=== PATIENT | female | born 1980 | race Asian ===

== ENCOUNTER 2023-04-15 17:48 | Emergency (ER) | payer MEDICAID ==
[~2023-04-15] VITALS: Ht 162.6 cm; Wt 63.5 kg
[2023-04-15 18:08] VITALS: BP_SYST 155; PULSE 77; RESP 16; TEMP 98.4; O2SAT 100
[2023-04-15] MEDS ORDERED: ASPIRIN 81 MG TAB.CHEW PO ONE (20:00)
[2023-04-15 20:41] LABS: BASOPHILS % (AUTO) 0.2 % (0.0-2.0); EOSINOPHILS # (AUTO) 0.1 K/uL (0.0-0.4); EOSINOPHILS % (AUTO) 1.7 % (0.0-4.0); HEMATOCRIT 43.4 % (36-48); HEMOGLOBIN 14.9 g/dL (12.0-16.0); LYMPHOCYTES # (AUTO) 1.4 K/uL (1.0-5.5); LYMPHOCYTES % (AUTO) 23.2 % (20.5-51.5); MEAN CORPUSCULAR HEMOGLOBIN 30 pg (27-31); MEAN CORPUSCULAR HGB CONC 34 % (32-36); MEAN CORPUSCULAR VOLUME 89 fL (79.0-98.0); MONOCYTES # (AUTO) 0.3 K/uL (0.0-1.0); MONOCYTES % (AUTO) 4.7 % (1.7-9.3); NEUTROPHILS # (AUTO) 4.3 K/uL (1.8-7.7); NEUTROPHILS % (AUTO) 70.2 % (40.0-70.0); PLATELET COUNT (AUTO) 308 K/uL (130-430); RED BLOOD CELL COUNT(AUTO) 4.91 MIL/uL (4.2-6.2); RED CELL DISTRIBUTION WIDTH 12.2 % (9.0-15.0); WHITE BLOOD COUNT (AUTO) 6.1 K/uL (4.8-10.8)
[2023-04-15 20:45] LABS: ANION GAP 10 (5-15); CALCIUM 9.8 mg/dL (8.4-11.0); CARBON DIOXIDE 31 mmol/L (23-29); CHLORIDE 99 mmol/L (98-107); CREATININE 0.72 mg/dL (0.55-1.30); GFR AFRICAN AMERICAN 114 mL/min (>90); GLUCOSE 100 mg/dL (74-106); POTASSIUM 3.4 mmol/L (3.5-5.1); SODIUM SERUM 140 mmol/L (136-145); UREA NITROGEN, BLOOD 9 mg/dL (8-21)
[2023-04-15 20:49] LABS: GFR NON AFRICAN-AMERICAN 94 mL/min (>90)
[2023-04-15] MEDS ORDERED: KETOROLAC TROMETHAMINE 30 MG VIAL IM ONE (21:00)
[2023-04-15] MEDS ORDERED: amLODIPine BESYLATE 5 MG TABLET PO ONE (21:00)
[2023-04-15] MEDS ORDERED: AMLO5TAB4 PO (22:00)
[2023-04-15 22:11] VITALS: BP_SYST 132; PULSE 62; RESP 18; TEMP 97.7; O2SAT 96
== END 2023-04-15 22:11 | disposition home or self-care (01) ==
LOC: SED 17:48
DX: R51.9 Headache, unspecified (principal); I10 Essential (primary) hypertension; T50.2X5A Adverse effect of carbonic-anhydrase inhibitors, benzothiadiazides and other diuretics, initial encounter; Z79.899 Other long term (current) drug therapy; Y92.89 Other specified places as the place of occurrence of the external cause
CPT/HCPCS: 99285; 70450; 80048; 83880; 85025; 84484; 36415; 93005; 76376; 81025; 96372; J1885

== ENCOUNTER 2023-05-12 20:17 | Emergency (ER) | payer MEDICAID ==
[~2023-05-12] VITALS: Ht 160 cm; Wt 57.2 kg
[~2023-05-12 20:17] MED LIST: AMLO5TAB4 PO
[2023-05-12 20:35] VITALS: BP_SYST 128; PULSE 80; RESP 18; TEMP 98.1; O2SAT 99
[2023-05-12] MEDS: HYDROcodone/ACETAMIN 10-325 MG TAB PO ONE (21:30)
[2023-05-12 21:42] LABS: BASOPHILS % (AUTO) 0.4 % (0.0-2.0); EOSINOPHILS # (AUTO) 0.2 K/uL (0.0-0.4); EOSINOPHILS % (AUTO) 3.4 % (0.0-4.0); HEMATOCRIT 42.2 % (36-48); HEMOGLOBIN 14.5 g/dL (12.0-16.0); LYMPHOCYTES # (AUTO) 1.5 K/uL (1.0-5.5); LYMPHOCYTES % (AUTO) 23.7 % (20.5-51.5); MEAN CORPUSCULAR HEMOGLOBIN 31 pg (27-31); MEAN CORPUSCULAR HGB CONC 34 % (32-36); MEAN CORPUSCULAR VOLUME 89 fL (79.0-98.0); MONOCYTES # (AUTO) 0.4 K/uL (0.0-1.0); NEUTROPHILS # (AUTO) 4.3 K/uL (1.8-7.7); NEUTROPHILS % (AUTO) 66.5 % (40.0-70.0); PLATELET COUNT (AUTO) 302 K/uL (130-430); RED BLOOD CELL COUNT(AUTO) 4.74 MIL/uL (4.2-6.2); RED CELL DISTRIBUTION WIDTH 12.2 % (9.0-15.0); WHITE BLOOD COUNT (AUTO) 6.5 K/uL (4.8-10.8)
[2023-05-12 21:51] LABS: ANION GAP 8 (5-15); CALCIUM 9.4 mg/dL (8.4-11.0); CARBON DIOXIDE 27 mmol/L (23-29); CHLORIDE 104 mmol/L (98-107); CREATININE 0.67 mg/dL (0.55-1.30); GFR AFRICAN AMERICAN 124 mL/min (>90); GLUCOSE 99 mg/dL (74-106); POTASSIUM 3.5 mmol/L (3.5-5.1); SODIUM SERUM 139 mmol/L (136-145); UREA NITROGEN, BLOOD 12 mg/dL (8-21)
[2023-05-12 22:05] LABS: GFR NON AFRICAN-AMERICAN 103 mL/min (>90)
[2023-05-12 22:57] LABS: SERUM HCG (QUALITATIVE) NEGATIVE (NEGATIVE)
[2023-05-13] MEDS ORDERED: DICY10SO PO (00:38)
[2023-05-13 00:48] LABS: BILIRUBIN,URINE NEGATIVE (NEGATIVE); BLOOD, URINE 1+ (NEGATIVE); COLOR,URINE YELLOW (YELLOW); GLUCOSE,URINE NEGATIVE (NEGATIVE); KETONES,URINE NEGATIVE (NEGATIVE); NITRITE, URINE NEGATIVE (NEGATIVE); PROTEIN URINE NEGATIVE (NEGATIVE); UROBILINOGEN,URINE 0.2 (0.2-1.0)
[2023-05-13 00:57] LABS: CLARITY/URINE SLIGHTLY CLOUDY (CLEAR); LEUKOCYTE ESTERASE ,URINE 1+ (NEGATIVE)
[2023-05-13 00:58] LABS: BACTERIA,URINE MODERATE /HPF (None Seen)
[2023-05-13 01:03] VITALS: BP_SYST 148; PULSE 78; RESP 18; TEMP 97; O2SAT 98
[2023-05-13] MEDS ORDERED: NITR-85 PO (01:09)
== END 2023-05-13 01:02 | disposition home or self-care (01) ==
LOC: SED 20:17
DX: I10 Essential (primary) hypertension (principal); R10.84 Generalized abdominal pain; F41.1 Generalized anxiety disorder; N39.0 Urinary tract infection, site not specified; Z79.899 Other long term (current) drug therapy
CPT/HCPCS: 36415; 71045; 80048; 81000; 81001; 81015; 83690; 83880; 84484; 84703; 85025; 87086; 87186; 93005; 99285